=== PATIENT | female | born 1970 | race Hispanic/Latino ===

== ENCOUNTER → 2017-08-12 | Outpatient (CLI) | payer BC ==
--- NOTE | 2017-08-12 12:25 | Diagnostic Imaging Report ---
PROCEDURE:L-SPINE COMPLETE COMPARISON:None. INDICATIONS:SCIATICA, RIGHT HIP BACK PAIN FINDINGS: There are 5 nonrib-bearing lumbar-type vertebral bodies. No acute, displaced fracture or subluxation. No pars interarticularis defects are identified on the oblique radiographs. There is disc space narrowing, endplate sclerosis, and marginal osteophytosis at L5-S1. Remaining intervertebral disc spaces are well-maintained. Facet joints are intact. Intrauterine device is visualized projecting over the pelvis. Sacroiliac joints are unremarkable. CONCLUSION: Moderate degenerative disc changes at L5-S1. Dictated by: Colin Wilde M.D. on 08/12/2017 at 12:27 Electronically approved by: Colin Wilde M.D. on 08/12/2017 at 12:27
== END ==
LOC: RAD 11:48
PROVIDERS: ATTEND Family Medicine
DX: M54.5 Low back pain (principal)
CPT/HCPCS: 72110

== ENCOUNTER → 2021-04-20 | Outpatient (CLI) | payer BC | LOC: MAMMO 08:50 | PROVIDERS: ATTEND Family Medicine | DX: Z12.31 Encounter for screening mammogram for malignant neoplasm of breast (principal) | CPT/HCPCS: 77067 ==

== ENCOUNTER → 2021-05-04 | Outpatient (CLI) | payer BC | LOC: MAMMO 08:02 | PROVIDERS: ATTEND Family Medicine | DX: N64.89 Other specified disorders of breast (principal) ==

== ENCOUNTER → 2022-05-10 | Outpatient (CLI) | payer BC | LOC: MAMMO 08:51 | PROVIDERS: ATTEND Family Medicine | DX: Z12.31 Encounter for screening mammogram for malignant neoplasm of breast (principal) | CPT/HCPCS: 77067 ==

== ENCOUNTER → 2022-06-15 | Outpatient (CLI) | payer BC | LOC: US 09:46 | PROVIDERS: ATTEND Internal Medicine | DX: D25.9 Leiomyoma of uterus, unspecified (principal) | CPT/HCPCS: 76830; 76856 ==